=== PATIENT | male | born 1940 | race African-American/Black ===

== ENCOUNTER 2017-07-13 21:25 | Emergency (ER) | payer MEDICARE ==
[~2017-07-13] VITALS: Ht 162.6 cm; Wt 63.5 kg
[~2017-07-13 21:25] MED LIST: AMLO5TAB88 PO; DIATR MEGLU/DIATRIZOATE SOLN 120ML ONE; DOXA2TAB2 PO; FINA5TAB11 PO
[2017-07-14] MEDS ORDERED: SODIUM CHLORIDE 0.9% 1,000 ML IV ONE (00:28)
[2017-07-14 00:48] LABS: BASOPHILS % 0.4 % (0.0-2.0); EOSINOPHILS % 0.1 % (0.0-5.0); HEMOGLOBIN. 14.8 g/dL (14.0-18.0); MEAN CORPUSCULAR HEMOGLOBIN 32.6 pg (28.0-32.0); MEAN CORPUSCULAR VOLUME 94.6 fL (80.0-94.0); MEAN PLATELET VOLUME 8.2 fl (7.4-10.4); MONOCYTES % 9.6 % (2.0-8.0); NEUTROPHILS % 81.9 % (40.0-76.0); PLATELET 196 x1000/uL (130-400); RED BLOOD CELL COUNT 4.54 mill/uL (4.7-6.1); RED CELL DISTRIBUTION WIDTH 12.9 % (11.6-14.6)
[2017-07-14 00:54] LABS: CHLORIDE 103 mEq/L (98-107)
[2017-07-14 01:00] LABS: CARBON DIOXIDE 29 mEq/L (21-32)
[2017-07-14 01:04] LABS: CLARITY URINE CLEAR (CLEAR); COLOR URINE ORANGE (YELLOW); GLUCOSE URINE TRACE (NEGATIVE); KETONES URINE NEGATIVE (NEGATIVE); LEUKOCYTE ESTERASE URINE NEGATIVE (NEGATIVE); NITRITE URINE NEGATIVE (NEGATIVE); OCCULT BLOOD URINE 3+ (NEGATIVE); PROTEIN URINE 2+ (NEGATIVE); UROBILINOGEN URINE 0.2 E.U./dL (0.2-1.0)
[2017-07-14 05:41] VITALS: BP 148/88
== END 2017-07-14 06:00 | disposition home or self-care (01) ==
LOC: ER 21:25
DX: R33.9 Retention of urine, unspecified (principal); K59.00 Constipation, unspecified; N40.0 Benign prostatic hyperplasia without lower urinary tract symptoms; I10 Essential (primary) hypertension
CPT/HCPCS: 36415; 51702; 74176; 80053; 81001; 83690; 85025; 96360; 96361; 99285; J7030; Q9963; A4315

== ENCOUNTER 2017-07-15 06:47 | Emergency (ER) | payer MEDICARE ==
[~2017-07-15] VITALS: Ht 162.6 cm; Wt 64.0 kg
[~2017-07-15 06:47] MED LIST changes: -DIATR MEGLU/DIATRIZOATE SOLN 120ML ONE
[2017-07-15] MEDS ORDERED: KETOROLAC 30MG/ML VIAL IV STA (07:37)
[2017-07-15] MEDS ORDERED: TAMSULOSIN HCL 0.4MG SR CAPSULE PO ONE (07:45)
[2017-07-15 07:51] LABS: BASOPHILS % 0.4 % (0.0-2.0); EOSINOPHILS % 0.2 % (0.0-5.0); HEMATOCRIT. 41.1 % (42.0-52.0); HEMOGLOBIN. 14.1 g/dL (14.0-18.0); LYMPHOCYTES % 13.3 % (20.0-50.0); MEAN CORPUSCULAR HEMOGLOBIN 32.7 pg (28.0-32.0); MEAN CORPUSCULAR VOLUME 95.2 fL (80.0-94.0); MEAN PLATELET VOLUME 8.4 fl (7.4-10.4); MONOCYTES % 8.4 % (2.0-8.0); NEUTROPHILS % 77.7 % (40.0-76.0); PLATELET 184 x1000/uL (130-400); RED BLOOD CELL COUNT 4.32 mill/uL (4.7-6.1); RED CELL DISTRIBUTION WIDTH 13.1 % (11.6-14.6)
[2017-07-15 07:59] LABS: CHLORIDE 102 mEq/L (98-107)
[2017-07-15 08:00] LABS: PROTHROMBIN TIME 10.8 sec (9.4-11.6)
[2017-07-15 08:07] LABS: CARBON DIOXIDE 32 mEq/L (21-32)
[2017-07-15 09:22] LABS: GLUCOSE URINE NEGATIVE (NEGATIVE); KETONES URINE 1+ (NEGATIVE); LEUKOCYTE ESTERASE URINE 2+ (NEGATIVE); NITRITE URINE POSITIVE (NEGATIVE); OCCULT BLOOD URINE 3+ (NEGATIVE); PROTEIN URINE 2+ (NEGATIVE); SPECIFIC GRAVITY URINE 1.013 (1.005-1.030)
[2017-07-15 09:37] LABS: CLARITY URINE CLOUDY (CLEAR); COLOR URINE BLOODY (YELLOW)
[2017-07-15] MEDS ORDERED: MORPHINE SULFATE 4 MG/ML CPJ (NOT FOR IM USE) IV ONE (11:15)
[2017-07-15] MEDS ORDERED: SODIUM CHLORIDE 0.9% 10ML VIAL ONE (14:41)
[2017-07-15] MEDS ORDERED: IOHEXOL-300 100 ML BOTTLE ONE (14:41)
[2017-07-15 15:58] VITALS: BP 120/69
== END 2017-07-15 16:02 | disposition home or self-care (01) ==
LOC: ER 08:05 → ENRESERV 18:05 → CANBEDREQ 21:27
DX: K59.00 Constipation, unspecified (principal); I10 Essential (primary) hypertension; Z85.46 Personal history of malignant neoplasm of prostate
CPT/HCPCS: 36415; 51702; 74177; 80053; 81001; 85025; 85610; 96374; 99285; A4216; J1885; Q9967; A4315

== ENCOUNTER 2017-10-02 16:14 | Emergency (ER) | payer MEDICARE ==
[~2017-10-02] VITALS: Ht 162.6 cm; Wt 68.0 kg
[2017-10-02 21:36] VITALS: BP 140/83
== END 2017-10-02 22:04 | disposition left against medical advice (07) ==
LOC: ER 17:15
DX: Z53.21 Procedure and treatment not carried out due to patient leaving prior to being seen by health care provider (principal); R33.9 Retention of urine, unspecified; I10 Essential (primary) hypertension; N40.0 Benign prostatic hyperplasia without lower urinary tract symptoms
CPT/HCPCS: A4315

== ENCOUNTER 2018-08-13 16:22 | Emergency (ER) | payer MEDICARE ==
[~2018-08-13] VITALS: Ht 162.6 cm; Wt 68.0 kg
[2018-08-13 23:06] LABS: BASOPHILS % 0.5 % (0.0-2.0); EOSINOPHILS % 1.5 % (0.0-5.0); HEMATOCRIT. 39.3 % (42.0-52.0); HEMOGLOBIN. 13.5 g/dL (14.0-18.0); LYMPHOCYTES % 23.6 % (20.0-50.0); MEAN CORPUSCULAR HEMOGLOBIN 32.6 pg (28.0-32.0); MEAN PLATELET VOLUME 7.6 fl (7.4-10.4); MONOCYTES % 9.9 % (2.0-8.0); NEUTROPHILS % 64.5 % (40.0-76.0); PLATELET 266 x1000/uL (130-400); RED BLOOD CELL COUNT 4.13 mill/uL (4.7-6.1); RED CELL DISTRIBUTION WIDTH 12.7 % (11.6-14.6)
[2018-08-13 23:10] LABS: CHLORIDE 105 mEq/L (98-107)
[2018-08-13 23:11] LABS: INR 1.1; PROTHROMBIN TIME 11.3 sec (9.1-11.1)
[2018-08-13 23:39] LABS: CLARITY URINE TURBID (CLEAR); COLOR URINE RED (YELLOW); KETONES URINE 2+ (NEGATIVE); LEUKOCYTE ESTERASE URINE 3+ (NEGATIVE); NITRITE URINE POSITIVE (NEGATIVE); OCCULT BLOOD URINE 3+ (NEGATIVE); PROTEIN URINE 3+ (NEGATIVE); SPECIFIC GRAVITY URINE 1.025 (1.005-1.030)
[2018-08-14] MEDS ORDERED: CEFTRIAXONE 1 G PREMIX 50 ML IV SCH
[2018-08-14 02:38] VITALS: BP 150/75
== END 2018-08-14 02:39 | disposition home or self-care (01) ==
LOC: ER 16:22 → EDBEDREQ 22:39 → CANBEDREQ 08-14 02:29 → ER 08-14 02:39
DX: N39.0 Urinary tract infection, site not specified (principal); R31.9 Hematuria, unspecified; I10 Essential (primary) hypertension
CPT/HCPCS: 36415; 51702; 80053; 81003; 85025; 85610; 87086; 96365; 99284; J0696; J7030

== ENCOUNTER 2018-08-16 02:05 | Inpatient (IN) | payer MEDICARE ==
[~2018-08-16] VITALS: Ht 172.7 cm; Wt 68.0 kg
[2018-08-16 05:07] LABS: BASOPHILS % 0.5 % (0.0-2.0); EOSINOPHILS % 2.8 % (0.0-5.0); HEMATOCRIT. 35.1 % (42.0-52.0); HEMOGLOBIN. 11.9 g/dL (14.0-18.0); LYMPHOCYTES % 22.4 % (20.0-50.0); MEAN CORPUSCULAR HEMOGLOBIN 32.2 pg (28.0-32.0); MEAN CORPUSCULAR VOLUME 95.2 fL (80.0-94.0); MEAN PLATELET VOLUME 8.1 fl (7.4-10.4); MONOCYTES % 10.3 % (2.0-8.0); PLATELET 218 x1000/uL (130-400); RED BLOOD CELL COUNT 3.69 mill/uL (4.7-6.1); RED CELL DISTRIBUTION WIDTH 12.7 % (11.6-14.6)
[2018-08-16 05:11] LABS: CHLORIDE 104 mEq/L (98-107)
[2018-08-16 07:06] LABS: CLARITY URINE CLOUDY (CLEAR); COLOR URINE RED (YELLOW); KETONES URINE NEGATIVE (NEGATIVE); LEUKOCYTE ESTERASE URINE 2+ (NEGATIVE); NITRITE URINE NEGATIVE (NEGATIVE); OCCULT BLOOD URINE 3+ (NEGATIVE); PH URINE 6.5 (4.5-8.0); PROTEIN URINE 3+ (NEGATIVE); SPECIFIC GRAVITY URINE 1.018 (1.005-1.030); UROBILINOGEN URINE 0.2 E.U./dL (0.2-1.0)
[2018-08-16] MEDS ORDERED: SULFAMETHOXAZOLE/TRIMETHOPRIM 400/80MG TAB PO ONE (13:00)
[2018-08-16] MEDS ORDERED: IBUPROFEN 600MG TABLET PO PRN (13:30)
[2018-08-16 15:51] VITALS: BP 148/79
[2018-08-16 16:00] VITALS: BP 140/73
[2018-08-16] MEDS ORDERED: ACETAMINOPHEN 325MG TABLET PO PRN (16:45)
[2018-08-16] MEDS: LEVOFLOXACIN 500MG TABLET PO SCH (17:45)
[2018-08-16 18:46] VITALS: BP 140/73
[2018-08-16 19:57] LABS: CHLORIDE 102 mEq/L (98-107)
[2018-08-16 20:00] VITALS: BP 101/64
[2018-08-17] VITALS: BP 124/72
[2018-08-17 01:21] VITALS: BP 124/72
[2018-08-17 05:26] VITALS: BP 125/71
[2018-08-17] MEDS: SODIUM CHLORIDE 0.9% INJ 3ML FLUSH IVF SCH ×2 (06:29→06:30)
[2018-08-17 07:39] LABS: HEMATOCRIT 37.5 % (42.0-52.0); HEMOGLOBIN 13.1 g/dL (14.0-18.0); MEAN CORPUSCULAR HEMOGLOBIN 33.2 pg (28.0-32.0); MEAN CORPUSCULAR VOLUME 94.8 fL (80.0-94.0); PLATELET 204 x1000/uL (130-400); RED BLOOD CELL COUNT 3.96 mill/uL (4.7-6.1); RED CELL DISTRIBUTION WIDTH 12.9 % (11.6-14.6)
[2018-08-17 08:00] VITALS: BP 132/70
[2018-08-17] MEDS ORDERED: FINASTERIDE 5MG TABLET PO SCH (09:00)
[2018-08-17] MEDS ORDERED: DOXAZOSIN MESYLATE 2MG TABLET PO SCH (09:00)
[2018-08-17] MEDS ORDERED: AMLODIPINE 5MG TABLET PO SCH (09:00)
[2018-08-17] MEDS: LEVOFLOXACIN 500MG TABLET PO SCH (11:56)
[2018-08-17 12:00] VITALS: BP 113/65
[2018-08-17] MEDS ORDERED: CIPR-263 MT (12:22)
== END 2018-08-17 13:35 | disposition home or self-care (01) | DRG 690 ==
LOC: ER 02:05 → 6EST 13:29 → EDBEDREQ 13:31 → ENRESERV 13:37
PROVIDERS: ADMIT Ophthalmology; ATTEND Ophthalmology
DX: N39.0 Urinary tract infection, site not specified (principal); I10 Essential (primary) hypertension; N40.0 Benign prostatic hyperplasia without lower urinary tract symptoms; R31.0 Gross hematuria; Z79.899 Other long term (current) drug therapy
CPT/HCPCS: 36415; 80048; 81003; 85025; 85027; 87086; 96374; 99285; A4315

== ENCOUNTER 2019-07-09 15:10 | Emergency (ER) | payer MEDICARE ==
[~2019-07-09] VITALS: Ht 167.6 cm; Wt 75.0 kg
[~2019-07-09 15:10] MED LIST changes: +CIPR-263 MT
[2019-07-09 18:23] LABS: CLARITY URINE TURBID (CLEAR); COLOR URINE YELLOW (YELLOW); KETONES URINE 1+ (NEGATIVE); LEUKOCYTE ESTERASE URINE 3+ (NEGATIVE); NITRITE URINE NEGATIVE (NEGATIVE); OCCULT BLOOD URINE 2+ (NEGATIVE); PROTEIN URINE NEGATIVE (NEGATIVE); SPECIFIC GRAVITY URINE 1.008 (1.005-1.030); UROBILINOGEN URINE 0.2 E.U./dL (0.2-1.0)
[2019-07-09 19:13] VITALS: BP 132/78
== END 2019-07-09 19:14 | disposition home or self-care (01) ==
LOC: ER 15:10
DX: T83.038A Leakage of other urinary catheter, initial encounter (principal); N39.0 Urinary tract infection, site not specified; I10 Essential (primary) hypertension; N40.0 Benign prostatic hyperplasia without lower urinary tract symptoms; Y84.6 Urinary catheterization as the cause of abnormal reaction of the patient, or of later complication, without mention of misadventure at the time of the procedure; Y92.018 Other place in single-family (private) house as the place of occurrence of the external cause
CPT/HCPCS: 81003; 99283